=== PATIENT | female | born 1995 | race African-American/Black ===

== ENCOUNTER 2017-11-01 16:46 | Emergency (ER) | payer OTHER ==
[~2017-11-01] VITALS: Ht 162.6 cm; Wt 78.2 kg
[~2017-11-01 16:46] MED LIST: ASPI325T33 PO; LISI-519 PO; NORE1TAB43 PO
[2017-11-01 16:54] VITALS: BP 171/78; PULSE 104; RESP 16; TEMP 99.5; O2SAT 100
[2017-11-01] MEDS ORDERED: DOXY100C PO (17:15)
[2017-11-01] MEDS ORDERED: BENZ100 PO (17:15)
[2017-11-01] MEDS ORDERED: PROMSYP3 PO (17:48)
[2017-11-01] MEDS ORDERED: ALBUAER3 INH (17:48)
[2017-11-01] MEDS ORDERED: AZIT250T3 PO (17:48)
--- NOTE | 2017-11-01 17:49 | PD ---
HPI Chief Complaint: Cold / Flu Symptoms Time Seen by Provider: 17:36 Travel History International Travel<30 days: No Contact w/Intl Traveler<30days: No Traveled to known affect area: No History of Present Illness HPI This is a 22-year-old female here with productive cough times one week. She reports her symptoms started as what she thought was an upper respiratory infection with nasal congestion, sore throat and cough. All symptoms resolve the exception of the cough which is now productive. She denies chest pain or shortness of breath. No fever or chills. Symptoms severity is moderate. No aggravating or alleviating factors. PFSH Past Medical History Anemia: Yes Asthma: Yes Anxiety: Yes Cancer: No Cardiovascular Problems: Yes (HEART MURMUR AND HIGH BLOOD PRESSURE) Cerebrovascular Accident: No Diminished Hearing: No Endocrine: No Genitourinary: No Headaches: Yes Hypertension: Yes Immune Disorder: No Musculoskeletal: Yes Neurologic: Yes Psychiatric: Yes Reproductive: No Respiratory: Yes (ASTHMA ) Immunizations Current: Yes Migraines: Yes Seizures: No Tetanus Vaccination: Unknown Influenza Vaccination: Yes ?: Not : 0 Para: 0 Past Surgical History Oral Surgery: Yes (WISDOM TEETH EXTRACTION) Social History Alcohol Use: Yes (socially) Tobacco Use: No Substance Use: No Allergies-Medications (Allergen,Severity, Reaction): Coded Allergies: fe (Unverified Allergy, Severe, Swelling, 11/01/17) shrimp (Unverified Allergy, Severe, SWELLING, 11/01/17) sulfamethoxazole (Unverified Allergy, Severe, Swelling, 11/01/17) trimethoprim (Unverified Allergy, Severe, Swelling, 11/01/17) Reported Meds & Prescriptions Reported Meds & Active Scripts Active Reported Tesderrek Perles (Benzonatate) 100 Mg Cap 100 Mg PO TID PRN Doxycycline Hyclate 100 Mg Cap 100 Mg PO BID Lisinopril 5 Mg Tab 10 Mg PO DAILY Review of Systems Except as stated in HPI: all other systems reviewed are Neg General / Constitutional: No: Fever Eyes: No: Visual changes Cardiovascular: No: Chest Pain or Discomfort Respiratory: Positive: Cough Gastrointestinal: No: Abdominal Pain Genitourinary: No: Dysuria Physical Exam Narrative GENERAL: Alert and well-appearing 22-year-old female SKIN: Warm and dry. No rash HEAD: Normocephalic. EYES: No injection or drainage. Ear/nose/throat: No TM erythema. Clear nasal discharge. Mild pharyngeal erythema without tonsillar hypertrophy or exudate. NECK: Supple. Mild anterior cervical lymphadenopathy CARDIOVASCULAR: Regular rate and rhythm RESPIRATORY: Breath sounds equal bilaterally. No accessory muscle use. Frequent cough throughout exam GASTROINTESTINAL: Abdomen soft, non-tender, nondistended. MUSCULOSKELETAL: No cyanosis, or edema. BACK: Nontender without obvious deformity. No CVA tenderness. Data Data Last Documented VS Vital Signs Date Time Temp Pulse Resp B/P (MAP) Pulse Ox O2 Delivery O2 Flow Rate FiO2 11/01/17 16:54 99.5 104 16 171/78 (109) 100 MDM Medical Decision Making Medical Screen Exam Complete: Yes Emergency Medical Condition: Yes Differential Diagnosis Bronchitis, pneumonia, influenza Narrative Course 22-year-old female here with productive cough 1 week. She is nontoxic appearing. She has a rhonchorous cough. She was treated for bronchitis Diagnosis Primary Impression: Bronchitis Referrals: Primary Care Physician Additional Instructions: Antibiotics as directed. Cough medication as needed. Albuterol inhaler as needed. Scripts Dextromethorphan-Promethazine Liq (Promethazine-Dextromethorphan Liq) 6.25-15 Mg /5 Ml Syrp 10 ML PO Q6HR Y for COUGH, #120 ML Prov: Patti Reyes 11/01/17 Albuterol 8.5 GM Inh (Proair Hfa 8.5 GM Inh) 90 Mcg/Act Aer 2 PUFF INH Q4-6H Y for SHORTNESS OF BREATH, #1 INHALER 0 Refills 108 mcg/actuation Prov: Patti Reyes 11/01/17 Azithromycin (Azithromycin) 250 Mg Tab 250 MG PO DIRECTED for Infection, #6 TAB 0 Refills Take 2 tabs (500 mg) on day 1 then 1 tab daily x 4 days. Prov: Patti Reyes 11/01/17 Disposition: DISCHARGE HOME Condition: Stable Patti Reyes Nov 01, 2017 17:49
== END 2017-11-01 17:51 | disposition home or self-care (01) ==
LOC: PHEFT 16:46
DX: J40 Bronchitis, not specified as acute or chronic (principal); D64.9 Anemia, unspecified; J45.909 Unspecified asthma, uncomplicated; F41.9 Anxiety disorder, unspecified; I10 Essential (primary) hypertension; Z79.899 Other long term (current) drug therapy; Z88.2 Allergy status to sulfonamides; Z88.8 Allergy status to other drugs, medicaments and biological substances
CPT/HCPCS: 99283